=== PATIENT | female | born 1970 | race Caucasian/White ===

== ENCOUNTER 2019-06-29 10:17 | Inpatient (IN) ==
[2019-06-29] MEDS ORDERED: ZOFRAN IV ONE (10:29)
[2019-06-29] MEDS ORDERED: MORPHINE IV ONE ×2 (10:29→13:12)
[2019-06-29 10:45] LABS: BASO# 0.02 X1000 (0.0-0.2); BASO% 0.2 % (0.0-0.8); EOS# 0.38 X1000 (0.0-0.7); EOS% 3.6 % (0.0-10.0); HEMATOCRIT 37.8 % (37.0-47.0); HEMOGLOBIN 12.2 g/dL (12.0-16.0); IMM GRAN# 0.05 X1000 (0.0-0.04); IMM GRAN% 0.5 % (0.0-0.5); LYMPH# 3.27 X1000 (1.2-3.4); LYMPH% 31.1 % (20.5-51.1); MCH 30.3 PG (27-31); MCHC 32.3 g/dL (33-37); MCV 93.8 FL (81-99); MONO# 0.64 X1000 (0.11-0.59); MONO% 6.1 % (1.7-9.3); MPV 10.7 FL (7.4-10.4); NEUT# 6.14 X1000 (1.4-6.5); NEUT% 58.5 % (42.2-75.2); PLT 269 X1000 (130-400); RBC 4.03 XMIL (4.2-5.4); RDW 13.8 % (11.5-14.5)
[2019-06-29 11:03] LABS: AGAP 13; ALBUMIN 4.1 g/dL (3.5-5.0); ALKALINE PHOSPHATASE 79 U/L (32-104); BUN 13 mg/dL (8-22); CALCIUM 9.3 mg/dL (8.8-10.2); CHLORIDE 110 mmol/L (98-107); COSMO 289; CREATININE 1.2 mg/dL (0.5-0.9); ESTIMATED GFR 48; GLUCOSE 102 mg/dL (70-104); GOT 11 U/L (10-30); GPT 12 U/L (10-36); LIPASE 31 U/L (13-60); POTASSIUM 3.7 mmol/L (3.5-5.1); SODIUM 145 mmol/L (136-145); TCO2 22 mmol/L (25-35); TOTAL BILIRUBIN < 0.15 mg/dL (0.20-1.00); TOTAL PROTEIN 6.5 g/dL (6.3-8.3)
[2019-06-29 11:46] LABS: BILIRUBIN URINE NEGATIVE (NEGATIVE); BLOOD URINE NEGATIVE (NEGATIVE); CLARITY CLEAR (CLEAR); COLOR YELLOW; GLUCOSE URINE NEGATIVE (NEGATIVE); KETONE URINE TRACE mg/dL (NEGATIVE); LEUKOCYTES URINE TRACE (NEGATIVE); NITRITE URINE NEGATIVE (NEGATIVE); PH URINE 6.5; PROTEIN URINE NEGATIVE (NEGATIVE); SP GRAVITY URINE 1.015; UROBILINOGEN URINE NORMAL
[2019-06-29 11:51] LABS: URINE SOURCE CLEAN CATCH
[2019-06-29 11:53] LABS: URINE BACTERIA NEGATIVE /HFP; URINE CAST NONE SEEN /LPF; URINE CRYSTAL NONE SEEN /HPF; URINE EPITHELIAL CELLS >10 /HPF (<10); URINE RBC <10 /HPF (<10); URINE WBC <10 /HPF (<10); URINE YEAST NONE SEEN /HPF
--- NOTE | 2019-06-29 11:54 | EKG Report ---
Test Performed on : 06/29/2019 11:50:37 AM Test Reason : fainting. Blood Pressure : / mmHG Vent. Rate : 070 BPM Atrial Rate : 070 BPM P-R Int : 140 ms QRS Dur : 086 ms QT Int : 394 ms P-R-T Axes : 027 030 044 degrees QTc Int : 425 ms Normal sinus rhythm. with sinus arrhythmia. Normal ECG When compared with ECG of 26-JAN-2019 14:28, No significant change was found Unconfirmed Result
--- NOTE | 2019-06-29 12:17 | Diag Imaging Result Doc PS360 ---
EXAM: CT ABD/PELVIS W/IV CONT ONLY 06/29/2019 HISTORY: RUQ PAIN TECHNIQUE: This exam was performed using automated exposure control, adjustment of mA or kV according to patient size, and/or use of iterative reconstruction technique. COMMENT: There is no evidence of acute disease in the visualized portion of the chest. There is some prominence of the intrahepatic biliary ducts. The common bile duct measures less than 8 mm in diameter in the appearance has not changed significantly since 05/28/2019. There has been previous cholecystectomy. The adrenal glands and spleen are not enlarged. There is some stool throughout the colon. The pancreas is unremarkable. There is no evidence of bowel obstruction or abdominal aortic aneurysm. There is no significant adenopathy. The kidneys are without evidence of hydronephrosis or mass. Pelvis: The appendix is normal in appearance. There is no evidence of diverticulitis. There are no masses. There is a prominent external iliac node on the right which has not changed significantly in appearance since the previous study. There is no evidence of free fluid. There is a tampon in the vagina. The urinary bladder is not distended. There are postsurgical changes in the lumbar spine. No evidence of acute bony abnormality is present. IMPRESSION: Stable CT of the abdomen and pelvis. Electronically signed by David Roe 06/29/2019 12:15 PM
--- NOTE | 2019-06-29 14:09 | PROVIDER DOCUMENTATION ---
This chart was entered by [employer] Scribe, acting as scribe for Kathya Garnett DO. HPI-Abdominal Pain/GI Problem - General Chief Complaint: Abdominal Pain Stated Complaint: CHEST PAIN Time Seen by Provider: 06/29/19 10:27 Source: patient, family Unable to obtain history due to:: urgency Allergies/Adverse Reactions: Patient Allergies Allergy/AdvReac Type Severity Reaction Status Date / Time No Known Allergies Allergy Verified 06/29/19 11:38 Home Medications: Home Medication List Medication Instructions Recorded Confirmed Last Taken Type Clonazepam [Klonopin] 1 mg PO BID 06/29/19 06/29/19 06/29/19 History 1mg Gabapentin [Neurontin] 600 mg PO 4XDAY 06/29/19 06/29/19 06/29/19 History 600mg Temazepam 1 cap PO HS 06/29/19 06/29/19 06/28/19 21:00 History Topiramate 1 cap PO HS 06/29/19 06/29/19 06/26/19 21:00 History Vortioxetine Hydrobromide 5 mg PO QAM 06/29/19 06/29/19 06/29/19 History [Trintellix] 4mg - History of Present Illness-ABD Nature of Presenting Problems: 48 yowf presents to the ed via POV and appeared unresponsive and diaphoretic. dr garnett was at car side with pt as soon as pt pulled in. pt was placed on a stretcher and brought into the trauma room. pt once in the trauma room was responsive and speaking to dr garnett. pt sts she saw dr white yesterday and RLQ pain has been intermittent for 2 weeks but this morning became severe. pt has nausea and sts has not been able to eat solid food and has been drinking jello a nd broth "for a while" pt on exam is guarding RLQ and tearful during exam. pt sts she has no medication for sx and has been taking antacids at home for abdominal pain with no releif. Abdominal Pain Onset Location: reports: RLQ Pain Radiation: reports: no radiation Quality of Pain: reports: burning, sharp, stabbing Severity in ED: reports: severe Onset/Duration: reports: other (2 weeks but worseed this am) Timing: reports: still present, getting worse Activities at Onset: reports: light activity Exposure to sick contacts?: No Modifying Factors: improves with: nothing. worse with: movement, palpation Associated Symptoms: reports: diaphoresis, loss of appetite, nausea. denies: back/neck pain, chest pain, diarrhea, dizziness, fever/chills, headaches, vomiting Last BM: unsure Dark Stools Present?: reports: none noticed Rectal Bleeding: reports: none # of Diarrhea Episodes: 0 Rectal Pain: reports: none # of Vomiting Episodes: 0 Emesis Description: reports: none Bruising or Bleeding Gums?: No Similar Symptoms Previously?: Yes (for 2 weeks) Recently seen or treated by another doctor?: Yes (dr white yesterday) Review of Systems - Adult - REVIEW OF SYSTEMS - ADULT Constitutional: denies: chills, fever Eyes: reports: no symptoms reported Ears, Nose, Mouth & Throat: reports: no symptoms reported Cardiovascular: denies: chest pain, palpitations Respiratory: denies: cough, shortness of breath, wheezing Gastrointestinal: reports: see HPI, abdominal pain, frequent heartburn, nausea, poor appetite. denies: diarrhea, vomiting Genitourinary: reports: no symptoms reported Musculoskeletal: denies: back pain, neck pain Integumentary: reports: no symptoms reported Neurological: denies: dizziness/vertigo, headache/migraines Psychiatric: reports: no symptoms reported Endocrine: reports: no symptoms reported Hematologic/Lymphatic: reports: no symptoms reported Allergic/Immunologic: reports: no symptoms reported All Other Systems: Reviewed and Negative Past History - Adult - PAST MEDICAL HISTORY-ADULT Review of Records: reports: Old Records Reviewed, Nursing Assessment Review, Medications Reviewed, Social history reviewed & non-contributory. Major Childhood Illnesses: reports: denies history Cardiovascular: reports: HTN (not treated) Respiratory: reports: denies history Gastrointestinal: reports: GERD Obstetrical/Gynecological: reports: ovarian cysts Genitourinary: reports: denies history Musculoskeletal: reports: chronic pain Neurological: reports: denies history Psychiatric: reports: anxiety, depression, ptsd, suicide attempt Endocrine/Immune: reports: denies history Other Conditions: reports: other (herpes) - PRIOR SURGERIES/PROCEDURES Surgical/Procedure History: reports: back/neck (back only) - PRIOR HOSPITALIZATIONS Prior Hospitalizations: reports: for similar symptoms, psychiatric or rehab - IMMUNIZATION STATUS Childhood Immunizations: See Nurse Assessment Flu Vaccine: See Nurse Assessment - FAMILY HISTORY Family History: reviewed, not pertinent - SOCIAL HISTORY Smoking: quit greater than 1 year Substance Use: alcohol Alcohol Use Frequency: occasionally Living Situation: family Physical Exam-General - PHYSICAL EXAM-ADULT Initial Vital Signs Reviewed: Yes (BP-166/134) - CONSTITUTIONAL General Appearance: alert, severe distress, obese - EYES Eyes: PERRL/EOMI, pink conjunctivae - HEAD, EARS, NOSE, MOUTH & THROAT HENMT: normocephalic/atraumatic, moist mucous membranes, normal ENT inspection - NECK Neck: non-tender, full range of motion, supple, normal inspection - RESPIRATORY Respiratory: chest non-tender, lungs clear, normal breath sounds - CARDIOVASCULAR Cardiovascular: normal peripheral pulses, regular rate, rhythm - CHEST (BREASTS) Chest/Breast: deferred - GASTROINTESTINAL (ABDOMEN) Abdominal Exam: soft, no pulsatile mass, guarding (RUQ), tenderness, other (well healed scar from gall bladder sx). negative: distended, rigid, rebound - LYMPHATIC Lymphatic: no adenopathy - MUSCULOSKELETAL Back Exam: normal inspection, no CVA tenderness, no vertebral tenderness Extremity: normal range of motion, normal inspection, no calf tenderness, normal capillary refill - SKIN Integumentary: normal color, normal turgor, diaphoresis - NEUROLOGIC Neurologic: other (INITIALLY VERY SOMNOLENT, THEN ALERT AND ANSWERING QUESTIONS APPROPRIATELY S DEFICITS.). negative: facial droop - PSYCHIATRIC Psych/Mental Status: normal thought content, normal thought process, oriented x 3, tearful Progress - PLAN OF CARE/RESULTS Progress/Plan/Lab Results: Vital Signs - 8 hr 06/29/19 10:20 06/29/19 10:39 Temperature 98.5 F Pulse Rate 82 Respiratory Rate 18 Blood Pressure 166/134 O2 Sat by Pulse Oximetry 97 Orders Category Date Time Status BLOOD CULTURE [BLDCUL] Stat Lab 06/29/19 10:29 Uncollected CBC WITH ELECTRONIC DIFF [HEME] Stat Lab 06/29/19 10:28 Received COMPREHENSIVE METABOLIC PANEL [CHEM] Stat Lab 06/29/19 10:28 Received LACTATE, PLASMA [CHEM] Stat Lab 06/29/19 10:29 Uncollected LIPASE [CHEM] Stat Lab 06/29/19 10:28 Received UA NIMS W/REFLEX CULT PL [URINALYSIS] Stat Lab 06/29/19 10:29 Uncollected Morphine Med 06/29/19 10:29 Discontinued 4 mg IV NOW ONE Ondansetron [Zofran] Med 06/29/19 10:29 Discontinued 4 mg IV NOW ONE EKG [EKG] Stat Ther 06/29/19 10:29 Ordered The pt was arousable to sternal rub when in the car in the ambulance bay. She was able to bear weight to the stretcher. Her S.O. insisted she was not breathing just prior to arrival and that he had to do CPR on the roadside, which he states she responded to. CT shows no acute pathology. I discussed her care with Dr White, who states he plans colonoscopy in the near future. Given her decreased LOC on arrival here and her reported stopping breathing, she was admitted to the hospitalist service, Dr Knutson. Result Diagrams: 06/29/19 10:28 06/29/19 10:28 - REASSESSMENT Reassessment #1 Time Reassessed: 11:38 (pt is laughing and joking with family at bedside and is no distress. pt is lying on her side in the bed ) Status: improving Reassessment Comment: at bedside Reassessment #2 Time Reassessed: 13:11 (pt sts pain is bad again and is tearful with dr garnett at bedside. finace at bedside sts he had to pull the car over 3 blocks from the hospital and do CPR on the pt because she stopped breathing. he sts 'I got her back pretty quick and then drove her here" ) Status: worsening Reassessment Comment: at bedside - EKG 1 Time of EKG reading by physician:: 11:50 EKG Read and Signed by:: Kathya Garnett EKG Interpretation (*Must complete 3 of following elements*): Normal Rate: 70 Rhythm: nsr with sinus arrythmia [place]: normal QRS: normal MT Interval: normal ST Wave: normal Prior EKG Comparison: no prior EKG - CT/MRI 1 CT Study: Abdomen, Pelvis Impression: See EMR Report (EXAM: CT ABD/PELVIS W/IV CONT ONLY 06/29/2019 HISTORY: RUQ PAIN TECHNIQUE: This exam was performed using automated exposure control, adjustment of mA or kV according to patient size, and/or use of iterative reconstruction technique. COMMENT: There is no evidence of acute disease in the visualized portion of the chest. There is some prominence of the intrahepatic biliary ducts. The common bile duct measures less than 8 mm in diameter in the appearance has not changed significantly since 05/28/2019. There has been previous cholecystectomy. The adrenal glands and spleen are not enlarged. There is some stool throughout the colon. The pancreas is un remarkable. There is no evidence of bowel obstruction or abdominal aortic aneurysm. There is no significant adenopathy. The kidneys are without evidence of hydronephrosis or mass. Pelvis: The appendix is normal in appearance. There is no evidence of diverticulitis. There are no masses. There is a prominent external iliac node on the right which has not changed significantly in appearance since the previous study. There is no evidence of free fluid. There is a tampon in the vagina. The urinary bladder is not distended. There are postsurgical changes in the lumbar spine. No evidence of acute bony abnormality is present. IMPRESSION: Stable CT of the abdomen and pelvis. Electronically signed by David Roe 06/29/2019 12:15 PM 06/29/19 1215 Interpreting Physician: David Roe MD Dictated Date/Time: 06/29/19 1211 cc: Kathya Garnett DO; None,PCP) - CONSULTS/PCP/HOSPITALIST Notification #1 *Consult/PCP/Hospitalist*: dr adali gomes Time Discussed: 13:16 Reason/Comments: phone consult Departure - Departure Date of Disposition Decision: 06/29/19 Time of Disposition Decision: 14:08 DIAGNOSIS: Syncope and collapse Abdominal pain Qualifiers: Abdominal location: right upper quadrant Qualified Code(s): R10.11 - Right upper quadrant pain Disposition: ADMITTED INPATIENT 09 Certified Medical Emergency: Emergent Condition: Fair - Critical Care Note This patient required my direct & personal management of CC.: Yes Total Time (mins): 38 Critical Care Statement: This patient required my direct personal management to treat or rule out processes, the absence of which, could potentiallly result in sudden, clinically significant life or limb threatening deterioration. Attestation - Physician/ LUIS Attestation Patient care was provided by Advanced Practice Provider:: No The physician spent face to face time with patient:: Yes Advanced Practice Provider documentation review:: Supervising physician onsite and consulted in the evaluation and care of this patient. The physician did have a face to face encounter with the patient. This chart was documented by the indicated scribe, ([employer] Scribe) and accurately reflects the services I performed and decisions made by me, Kathya Garnett DO, as attested by the provider's signature.
[2019-06-29] MEDS ORDERED: APRESOLINE IV PRN (18:29)
[2019-06-29] MEDS ORDERED: NS 1,000 ML IV SCH (18:30)
[2019-06-29] MEDS ORDERED: G.I. COCKTAIL PO ONE (19:04)
[2019-06-29] MEDS: NORCO-7.5 PO PRN (19:57)
[2019-06-29] MEDS: TOPAMAX PO SCH ×2 (19:57→20:53)
[2019-06-29] MEDS: NEURONTIN PO SCH ×2 (19:57→20:53)
--- NOTE | 2019-06-29 23:06 | HISTORY AND PHYSICAL ---
CHIEF COMPLAINT: Abdominal pain. HISTORY OF PRESENT ILLNESS: The patient is a 48-year-old female who has quite a complicated present illness. She notes that she has been nauseated and vomiting. Has had abdominal pain intensely for the past 2 to 3 months. Her notes that she has not kept anything down for the past couple of months. She apparently had her gallbladder removed by Dr. White at some point and was told that she needed to have her duodenum resected. However, she notes that she had not followed up with him or anyone else during this time. They also note that she has had a fever of 103 for the past 2 to 3 weeks, but has not followed up with anyone for this. Denied any hematemesis, melena or hematochezia. As noted, do state that she has not been keeping anything down for several months and that all of her symptoms have worsened for the past 2 or 3 weeks culminating in the severity today that brought her to the hospital. notes that en route to the hospital, he was driving the car and had to extract puller and perform CPR on her because she had stopped breathing. Thankfully, upon arrival to the ER, she was awake, alert, oriented, and appeared to be in no respiratory distress. MEDICATIONS: Klonopin 1 mg b.i.d., Neurontin 600 mg 4 times a day, Trintellix 5 mg daily, Restoril at bedtime. ALLERGIES: No known drug allergies. PAST MEDICAL HISTORY: Insomnia, neuropathy, chronic anxiety. She has had a cholecystectomy in the past, history of hypertension although states she does not take any medications for her blood pressure currently. Has chronic anxiety and depression, history of PTSD, previous suicide attempt. Has chronic pain and apparent history of ovarian cysts. FAMILY HISTORY: Noncontributory. SOCIAL HISTORY: She is . Does drink alcohol occasionally. Denies illicit substance use. She does smoke. She is . PHYSICAL EXAMINATION: VITAL SIGNS: Reviewed. She is afebrile. Temperature 98.5 degrees, pulse 82, respiratory rate 18, BP initially elevated 166/134 in the ER. Saturations 97% on room air. GENERAL: Patient is awake, alert. She is in no respiratory distress. She is lying in the position. She is tearful on exam, frequently crying. Speech is nonpressured, nonlabored. Memory appears intact. HEENT: Normocephalic. NECK: Supple. CARDIOVASCULAR: Regular rate. No apparent murmurs. CHEST: Clear and nonlabored. ABDOMEN: Soft, diffusely tender making exam difficult. She has voluntary guarding before palpation. Appears to not have any involuntary guarding. Appears to have no rebound. Positive bowel sounds. EXTREMITIES: Moves all extremities. NEUROLOGIC: No focal changes. ASSESSMENT: 1. Nausea, vomiting. 2. Decreased oral intake. 3. Abdominal pain. 4. Fever per history. 5. Depression. 6. Anxiety. PLAN: Overall, patient appears to be in no distress. She appears to be awake, alert, and oriented. Thankfully, although her history is she is not kept anything down for 3 months and has had a fever for 3 weeks, her white count at 10, her creatinine at 1.2, BUN is normal, CO2 is normal as well as her electrolytes would seem to contradict this. We are going to admit her to the hospital, place her on IV fluids. Discussed with patient that given her somewhat unusual syncopal episode en route to the hospital causing her to perform CPR, certainly would not be in her best interest to take Klonopin, Restoril and pain medication. We will place her on telemetry and we will follow. We will transfer her to [facility]'s input as well as GI. Certainly feel as though she will need to have endoscopies to rule out any pathology. CT of the abdomen was essentially negative. cc: Juan Carlos Knutson MD
[2019-06-30] MEDS: NORCO-7.5 PO PRN (03:43)
[2019-06-30] MEDS: NORCO-10 PO PRN ×2 (08:48→14:05)
[2019-06-30] MEDS: KLONOPIN PO PRN (08:50)
[2019-06-30] MEDS: NEURONTIN PO SCH ×4 (08:50→20:50)
[2019-06-30] MEDS: TRINTELLIX PO SCH (08:50)
[2019-06-30] MEDS ORDERED: M.V.I.-12 10 ML, FOLIC ACID 1 MG, MAGNESIUM SULFATE 1 GM, THIAMINE 100 MG in NS 1,000 ML IV ONE (10:00)
--- NOTE | 2019-06-30 11:22 | PROGRESS NOTE ---
DATE: 06/30/2019 SUBJECTIVE: Upon entering the room, she is lying on her right side using her cellphone, either text or playing a game. Regardless, she appears in no respiratory distress. She appears to be breathing comfortably and easily and is lying quite still in the bed. Unfortunately, this did not last. After I spoke to her she is now moving about in the bed, weeping loudly, stating how much she is hurting, asking for IV pain medications. PHYSICAL EXAM: Vital Signs: Temperature 98, pulse 67, respiratory rate 18, BP 134/92. General: Patient is awake. She is in no respiratory distress. HEENT: Normocephalic. Neck: Supple. Cardiovascular: Regular rate. Chest: Clear, nonlabored. Abdomen: Soft. Unfortunately, unable to truly assess due to the tenderness prior to my palpating her abdomen. Extremities: Moves all extremities. Neurologic: She has no focal changes. ASSESSMENT: 1. Abdominal pain of undetermined origin with normal labs, normal CT. 2. History of febrile illness for the past 3 weeks, although thankfully she has had no fever during the previous 24 hours since she has been in the hospital. 3. Pain control. This does seem to be somewhat problematic. Patient appears to be more interested in intravenous pain medication than true pain control. She appears to be in minimal, if any pain, prior to noting that I was in the room. The staff seems to have had the same inclination. We are going to continue to follow. We did increase her pain pill from 7.5 to 10, increased from 6 hours to 4. Discussed with her that intravenous pain medication would not be in her best interest as this is a chronic problem and not an acutely fixable issue. Dr. White is on board. cc: Juan Carlos Knutson MD
--- NOTE | 2019-06-30 12:39 | GENERAL SURGERY CONSULTATION ---
DATE: 06/30/2019 REQUESTING PHYSICIAN: Dr. Knutson. REASON FOR CONSULTATION: Abdominal pain. HISTORY OF PRESENT ILLNESS: A 48-year-old female, well known to me, who I had seen in the office this week for abdominal pain. She had previously had a CT scan last month that showed enteritis in the duodenum. She was seen in the office. We talked about repeating the CT scan and potentially scheduling an EGD or colonoscopy. By report, she has had issues holding any food down and she apparently told the hospitalist that I was planning on removing her duodenum. Regardless, she apparently had worsening pain and had what they described as a passing out issue, and by report per the fiancee, she apparently needed to have CPR in the car. This did not seem to be as evident when she arrived to the emergency department where at all she needed was a sternal rub, but she had this report of passing out. Therefore, she has been admitted. She is still complaining of abdominal pain in the epigastric area. I was asked to weigh an opinion. She had a repeat CT scan that did not show any other pathology. PAST MEDICAL HISTORY: 1. Insomnia. 2. Neuropathy. 3. Chronic anxiety. 4. Hypertension. 5. Depression. 6. History of PTSD. 7. History of suicide attempt. PAST SURGICAL HISTORY: Includes cholecystectomy MEDICATIONS: Reviewed. FAMILY HISTORY: Reviewed with patient, noncontributory. SOCIAL HISTORY: Drinks alcohol occasionally. Denies illicit substance. She is a smoker. REVIEW OF SYSTEMS: A full 10 point review of systems obtained, negative as specified in HPI. PHYSICAL EXAMINATION: Vital Signs: Patient is currently afebrile. Her vital signs are stable. General: No acute distress. Alert, interactive female, looks stated age. HEENT: Normocephalic, atraumatic. Pupils equal, round, reactive to light. Mucous membranes moist. Oropharynx benign. Neck: Supple. Trachea midline. Cardiovascular: Regular rate and rhythm. Lungs: Grossly clear. Abdomen: Soft. She reports diffuse tenderness to palpation. I do not see any peritoneal signs. I do not see any guarding. Extremities: Moves all extremities. Neurologic: Grossly intact. Skin: No signs of jaundice. Vascular: All extremities perfused. LABORATORY DATA: Reviewed and almost all essentially normal. CT scan reviewed and essentially normal. ASSESSMENT AND PLAN: A 48-year-old female with abdominal pain and possible syncopal episode. 1. Syncopal episode. At this time, defer to the hospitalist. We will continue to monitor if she has not had any more episodes. She says it was because of pain. 2. Abdominal pain. At this time, the patient's laboratories do not suggest any intra-abdominal process needing a CT scan. She has not been hemodynamically unstable. She has not been tachycardic. Unsure the exact etiology of her pain. We will add Protonix p.o. for any kind of gastric issue. I have her scheduled for an EGD and colonoscopy. May try to bump this up to Wednesday or Wednesday if possible. I think she can probably hold on her transfer for [facility]. I did discuss this case with Dr. Knutson who is the admitting hospitalist, I appreciate the consult. cc: MD Juan Carlos Fulton MD
[2019-06-30] MEDS: MORPHINE IV PRN ×2 (16:19→22:12)
[2019-06-30] MEDS: TOPAMAX PO SCH (20:50)
[2019-07-01] MEDS: MORPHINE IV PRN ×4 (04:06→22:26)
[2019-07-01] MEDS: PROTONIX PO SCH (06:23)
[2019-07-01] MEDS: TRINTELLIX PO SCH (10:09)
[2019-07-01] MEDS: NEURONTIN PO SCH ×4 (10:10→20:38)
[2019-07-01] MEDS: KLONOPIN PO PRN ×2 (10:10→20:38)
[2019-07-01 11:14] LABS: HEMATOCRIT 41.2 % (37.0-47.0); HEMOGLOBIN 13.4 g/dL (12.0-16.0); MCH 30.5 PG (27-31); MCHC 32.5 g/dL (33-37); MCV 93.8 FL (81-99); MPV 9.8 FL (7.4-10.4); RBC 4.39 XMIL (4.2-5.4); WBC 6.12 X1000 (4.8-10.8)
[2019-07-01 11:29] LABS: AGAP 11; ALBUMIN 3.9 g/dL (3.5-5.0); ALKALINE PHOSPHATASE 202 U/L (32-104); BUN 6 mg/dL (8-22); CALCIUM 8.8 mg/dL (8.8-10.2); CHLORIDE 110 mmol/L (98-107); COSMO 281; CREATININE 0.8 mg/dL (0.5-0.9); ESTIMATED GFR > 60; GLUCOSE 130 mg/dL (70-104); GOT 348 U/L (10-30); GPT 516 U/L (10-36); MAGNESIUM 2.2 mg/dL (1.5-2.7); POTASSIUM 3.9 mmol/L (3.5-5.1); SODIUM 141 mmol/L (136-145); TCO2 20 mmol/L (25-35); TOTAL PROTEIN 6.7 g/dL (6.3-8.3)
--- NOTE | 2019-07-01 13:41 | PROGRESS NOTE ---
DATE: 07/01/2019 SUBJECTIVE: Upon entering the room patient is sitting up on her phone in no respiratory distress. She immediately starts crying loudly and weeping. After attempting to discuss with her the impact stress has on abdominal issues she states she is not stressed. She just does not know what is going on inside of her and feels like that she is dying from it. She then remarks something about some patient apparently I have seen in the past who may have told me some misleading social decisions she has made in the past. States that she is over it and that she has given all her furniture to God and her ex- sold her furniture to his new girlfriend. I discussed with her that I have do apologize profusely but I am completely oblivious to whatever she is talking about. She continued to cry stating that she was over it. PHYSICAL EXAMINATION: Temperature 97.6, pulse 69, respiratory rate 18, BP 132/78.General: Patient is in no respiratory distress. Does not appear to be any physical distress. Certainly appears to be in emotional distress. HEENT: Normocephalic. Neck: Supple. Cardiovascular: Regular rate. No murmurs. Chest: Clear, nonlabored. No wheezing. Abdomen: Soft. Unable to appreciate tenderness as she begins wailing prior to palpating her abdomen. Extremities: Moves all extremities. Neuro: No changes. ASSESSMENT: 1. Nausea, vomiting. 2. Abdominal pain. 3. Tearful on exam. 4. Depression, anxiety. 5. Fever by history. Oddly enough patient has not had any documented fever in the past 48 hours. However, when discussing this with her she notes that she had a high fever last night, broke out into chills and sweating soaked her bed but was too scared to tell the staff. I tried to discuss with patient how important it would be for her to tell the staff if she is having that severe of a fever. 6. I am going to continue her in the hospital. She has a planned EGD and colon on Wednesday. cc: Juan Carlos Knutson MD
--- NOTE | 2019-07-01 17:57 | Diag Imaging Result Doc PS360 ---
US ABDOMEN-COMPLETE - 07/01/2019 INDICATION: elevated lfts COMPARISON: 06/29/2019 FINDINGS: The gallbladder is absent. Common bile duct measures 2 mm. The liver, pancreas, and spleen are normal. Both kidneys are obscured by extensive bowel gas. The spleen measures 10.1 x 4.4 cm. Aorta, IVC, and main portal vein are patent. IMPRESSION: Negative exam. Electronically signed by Alessandro Ventura 07/01/2019 5:54 PM
[2019-07-01] MEDS: NORCO-10 PO PRN (20:38)
[2019-07-01] MEDS: TOPAMAX PO SCH (20:38)
[2019-07-01] MEDS: NS 1,000 ML IV SCH (22:20)
[2019-07-02] MEDS: MORPHINE IV PRN ×3 (06:24→21:24)
[2019-07-02] MEDS: PROTONIX PO SCH (06:25)
[2019-07-02] MEDS ORDERED: GOLYTELY PO ONE (06:30)
[2019-07-02 06:38] LABS: AGAP 13; ALBUMIN 4.1 g/dL (3.5-5.0); ALKALINE PHOSPHATASE 229 U/L (32-104); BUN 7 mg/dL (8-22); CALCIUM 8.8 mg/dL (8.8-10.2); CHLORIDE 107 mmol/L (98-107); COSMO 281; CREATININE 0.7 mg/dL (0.5-0.9); ESTIMATED GFR > 60; GLUCOSE 88 mg/dL (70-104); GOT 260 U/L (10-30); GPT 503 U/L (10-36); POTASSIUM 4.6 mmol/L (3.5-5.1); SODIUM 142 mmol/L (136-145); TCO2 22 mmol/L (25-35); TOTAL PROTEIN 6.7 g/dL (6.3-8.3)
--- NOTE | 2019-07-02 09:32 | PROGRESS NOTE ---
DATE: 07/02/2019 SUBJECTIVE: The patient complains of having epigastric and right upper quadrant abdominal discomfort. She denies having any other complaints. OBJECTIVE: Vital Signs: Temperature 98.7 degrees, pulse 63 per minute, respiratory rate 18 per minute, blood pressure 124/89, pulse oximetry 100% on room air. General: Patient is alert and oriented x3. She does not appear to be in any acute distress. Cardiovascular System: First and second heart sounds are audible without any murmurs or gallops. Respiratory System: No respiratory distress noted. Bilateral lung air entry is good without any rales or rhonchi. Gastrointestinal: Abdomen is soft and nondistended. It is slightly tender on deep palpation in the epigastric area. No viscera are palpable and normal bowel sounds are present. Musculoskeletal System: No deformities are present. DIAGNOSTIC DATA: CBC is nondiagnostic and comprehensive metabolic panel showed AST level of 260, ALT 503, and alkaline phosphatase of 229. Rest of the comprehensive metabolic panel is nondiagnostic. Abdominal ultrasound done yesterday was mostly negative and CT scan of the abdomen and pelvis obtained on 06/29/[address] scan of the abdomen and pelvis without any acute findings. She also had a surgical consultation done, who did not think she had an acute abdomen. IMPRESSION: Epigastric abdominal pain with transaminitis and anxiety disorder, along with depression. PLAN: 1. The patient will be continued on IV fluids along with supportive care and proton pump inhibitors. 2. We are going to transfer her to [facility] for possible esophagogastroduodenoscopy and colonoscopy tomorrow. 3. Further recommendations will be given as per outcome of those tests. cc: MD Juan Carlos Vyas MD
[2019-07-02] MEDS ORDERED: FLU VACCINE IM ONE (10:19)
[2019-07-02] MEDS: TRINTELLIX PO SCH (12:24)
[2019-07-02] MEDS: NEURONTIN PO SCH ×4 (12:25→21:17)
[2019-07-02] MEDS: KLONOPIN PO PRN (12:25)
[2019-07-02] MEDS: NS 1,000 ML IV SCH (17:44)
[2019-07-02] MEDS: OXY IR PO PRN ×2 (17:51→23:40)
[2019-07-02] MEDS: TOPAMAX PO SCH (21:17)
[2019-07-03] MEDS: MORPHINE IV PRN ×3 (04:06→20:08)
--- NOTE | 2019-07-03 05:42 | GENERAL SURGERY PROGRESS NOTE ---
DATE: 07/03/2019 SUBJECTIVE: Patient had some issues taking her bowel prep. Apparently, she ate a salad last night. I think she has mostly finished her bowel prep. She has had bowel movements. OBJECTIVE: Vital Signs: Patient is currently afebrile. Her vital signs are stable. General: No acute distress. HEENT: Normocephalic, atraumatic. Pupils equal, round, and reactive to light. Mucous membranes moist. Oropharynx benign. Neck: Supple. Trachea midline. Cardiovascular: Regular rate and rhythm. Lungs: Grossly clear. Abdomen: Soft. Some minimal discomfort. No peritoneal signs. Extremities: She moves all extremities. Neurologic: Grossly intact. Skin: No signs of jaundice. Vascular: All extremities perfused. LABORATORY: Reviewed events from the weekend. ASSESSMENT AND PLAN: A 48-year-old female with abdominal pain. Abdominal pain. At this time, we will plan on EGD and colonoscopy today. The risks, benefits, and alternatives were discussed. Risks including, but not limited to bleeding, infection, risk of anesthesia, risk of injury and perforation, and bleeding discussed. She wants to proceed. Hopefully, she has been cleaned out enough. cc: MD Juan Carlos Fulton MD
[2019-07-03 06:30] LABS: BASO# 0.02 X1000 (0.0-0.2); BASO% 0.3 % (0.0-0.8); EOS# 0.25 X1000 (0.0-0.7); EOS% 3.7 % (0.0-10.0); HEMATOCRIT 38.4 % (37.0-47.0); HEMOGLOBIN 12.3 g/dL (12.0-16.0); IMM GRAN# 0.01 X1000 (0.0-0.04); IMM GRAN% 0.1 % (0.0-0.5); LYMPH# 2.37 X1000 (1.2-3.4); LYMPH% 34.9 % (20.5-51.1); MCV 93.7 FL (81-99); MONO# 0.41 X1000 (0.11-0.59); MPV 10.4 FL (7.4-10.4); NEUT# 3.74 X1000 (1.4-6.5); PLT 269 X1000 (130-400)
[2019-07-03 07:17] LABS: AGAP 12; ALBUMIN 3.6 g/dL (3.5-5.0); ALKALINE PHOSPHATASE 189 U/L (32-104); AMYLASE 26 U/L (20-200); BUN 8 mg/dL (8-22); CALCIUM 8.7 mg/dL (8.8-10.2); CHLORIDE 110 mmol/L (98-107); COSMO 281; CREATININE 0.9 mg/dL (0.5-0.9); ESTIMATED GFR > 60; GLUCOSE 89 mg/dL (70-104); GOT 104 U/L (10-30); GPT 311 U/L (10-36); LIPASE 13 U/L (13-60); POTASSIUM 3.9 mmol/L (3.5-5.1); SODIUM 142 mmol/L (136-145); TCO2 20 mmol/L (25-35); TOTAL PROTEIN 6.2 g/dL (6.3-8.3)
[2019-07-03] MEDS ORDERED: DIPRIVAN 1% ONE ×2 (10:21→11:04)
[2019-07-03] MEDS ORDERED: XYLOCAINE-MPF 2% ONE (10:23)
[2019-07-03] MEDS ORDERED: FENTANYL ONE (10:24)
[2019-07-03] MEDS ORDERED: LR 1,000 ML ONE (10:25)
[2019-07-03] MEDS: PROTONIX PO SCH (11:04)
[2019-07-03] MEDS: NEURONTIN PO SCH ×4 (11:05→21:14)
[2019-07-03] MEDS: TRINTELLIX PO SCH (11:05)
--- NOTE | 2019-07-03 14:58 | Diag Imaging Result Doc PS360 ---
EXAM: MRI MRCP (ABD W/O CONTRAST) HISTORY: possible cbd obstruction TECHNIQUE: MRCP. MIP images obtained. COMPARISON: None. FINDINGS: No dilatation to the common bile duct. No stone or stricture. The distal duct near the ampulla of Vater is obscured by bowel loops on the MRCP images. The distal common bile duct is poorly seen in the pancreatic head on the axial images. The spleen is not enlarged. No focal hepatic abnormality. Normal adrenal glands and kidneys. No aortic aneurysm. No bowel obstruction. The gallbladder has been removed. IMPRESSION: Although the distalmost portion of the common bile duct is poorly seen, the remainder of the common bile duct is not dilated. Electronically signed by Zurdo Collins 07/03/2019 2:56 PM
[2019-07-03] MEDS: OXY IR PO PRN ×2 (17:02→21:21)
--- NOTE | 2019-07-03 18:34 | OPERATIVE NOTE ---
PROCEDURE DATE: 07/03/2019 PREOPERATIVE DIAGNOSES: 1. Abdominal pain. 2. Change in bowel habits. POSTOP DIAGNOSIS: 1. Abdominal pain. 2. Change in bowel habits. 3. Mild gastritis. PROCEDURE: 1. EGD. 2. Colonoscopy to ascending colon. SURGEON: Bakari White MD. ACTIVITY SPECIALIST: None. ANESTHESIA: IV MAC. INTRAOPERATIVE FINDINGS: Gastritis and very poor prep in the colon. COMPLICATIONS: None at time dictation. ESTIMATED BLOOD LOSS: Minimal. SPECIMENS REMOVED: None. BRIEF HISTORY: A 48-year-old female with abdominal pain. Workup thus far been negative. We elected do EGD and colonoscopy. The risks, benefits, alternatives were discussed. Risks include but not limited to bleeding, infection, risk of perforation discussed, all questions answered. DESCRIPTION OF PROCEDURE: After informed consent was obtained patient brought to the GI suite placed on GI table. IV MAC anesthesia was then performed without complication. A formal time-out was then performed confirming patient, date, procedure, all in agreement. At that time the oral bite block was inserted. At that point we inserted the EGD scope through the oral bite block into the oropharynx and esophagus into the stomach. We got into the duodenum and viewed even to the 2nd and 3rd portion the duodenum. I saw the sphincter in the papilla and I did not see any obvious pathology. We slowly withdrew the scope. There was some mild gastritis but not enough to warrant a biopsy. The remainder of the stomach was normal. The esophagus was normal. Brought the scope out. We then repositioned the patient for a colonoscopy, did a digital rectal exam, no masses. We inserted colonoscope. The prep was very poor. Had a difficult time seeing all surfaces only place I can get to was the ascending colon and at that point there was significant amount of solid stool burden and I could not get past. We withdrew the scope slowly viewing all surfaces but again the bowel prep was poor and I could not see fully. Withdrew the scope. The patient tolerated procedure well, will transfer back to [place]. She will likely need an MRI and MRCP to evaluate for possible issues with the common bile duct since her LFTs increased suddenly. cc: MD Juan Carlos Fulton MD
[2019-07-03] MEDS: TOPAMAX PO SCH (21:14)
--- NOTE | 2019-07-03 21:36 | PROGRESS NOTE ---
DATE: 07/03/2019 SUBJECTIVE: Patient notes that her abdomen still hurts. Denies any fevers or chills. Still states that she is having pain on the right lower quadrant that radiates up to her right upper quadrant and across to her left side. Still states that she cannot eat but she was able to eat a salad last night while she was in the midst of her bowel prep for colonoscopy today. PHYSICAL: Temperature 98.7, pulse 67, respiratory 20, blood pressure stable.General: Patient is in no current respiratory distress. HEENT: Normocephalic. Neck: Supple. CV: Regular rate. Chest: Clear, nonlabored. Abdomen: Soft, nondistended. Extremities: Moves all extremities. ASSESSMENT: 1. Abdominal pain. 2. Transaminitis of undetermined origin. Her AST, ALT both elevated on Wednesday have been previously normal on Wednesday. So both are trending back to normal today. 3. Chronic stress reaction. The patient states that she is not stressed but each time I have had this discussion with her she is crying during the discussion as to how she is not stressed. PLAN: Patient went to [facility] today to have a colonoscopy that was normal per Dr. White. We are going to watch her overnight. Recheck her enzymes in the a.m. Hopefully they will improve and she can be discharged home. cc: Juan Carlos Knutson MD
[2019-07-04] MEDS: KLONOPIN PO PRN ×2 (00:24→09:17)
[2019-07-04] MEDS: MORPHINE IV PRN ×4 (03:08→23:08)
[2019-07-04] MEDS: OXY IR PO PRN ×2 (05:27→11:28)
[2019-07-04] MEDS: PROTONIX PO SCH (06:18)
[2019-07-04] MEDS: TRINTELLIX PO SCH (09:17)
[2019-07-04] MEDS: NEURONTIN PO SCH ×4 (09:18→22:56)
[2019-07-04 09:54] LABS: HEMATOCRIT 34.9 % (37.0-47.0); HEMOGLOBIN 10.9 g/dL (12.0-16.0); MCH 29.4 PG (27-31); MCHC 31.2 g/dL (33-37); MCV 94.1 FL (81-99); MPV 10.4 FL (7.4-10.4); RBC 3.71 XMIL (4.2-5.4); WBC 6.19 X1000 (4.8-10.8)
--- NOTE | 2019-07-04 10:17 | GENERAL SURGERY PROGRESS NOTE ---
DATE: 07/04/2019 SUBJECTIVE: Patient is still complaining of pain she reports in her left upper quadrant, right upper quadrant and right lower quadrant. States it is a 10/10. We did an EGD and colonoscopy yesterday, and besides some mild gastritis everything looked okay. Her bowel prep was pretty poor so I could not see the whole entirety of her colon, but the parts that I could see were normal. I did get an MRI and MRCP yesterday because of her elevated liver function test. It was also essentially normal with no issues in the liver noted either. Patient is requesting potentially to go to [facility]. OBJECTIVE: Vital Signs: Patient is currently afebrile. Her vital signs are stable. General: No acute distress. Sleeping in the chair. HEENT: Normocephalic, atraumatic. Pupils equal, round, reactive to light. Mucous membranes moist. Oropharynx benign. Neck: Supple. Trachea midline. Cardiovascular: Regular rate and rhythm. Lungs: Grossly clear. Abdomen: Soft. Tenderness is noted above but only mild. Extremities: Moves all extremities. Neurologic: Grossly intact. Skin: No signs of jaundice. Vascular: All extremities perfused. LABORATORY: Reviewed from yesterday. White blood cell count is normal. There is no left shift. Hematocrit is normal. AST and ALT and alkaline phosphatase are all trending down. The bilirubin is not abnormal. ASSESSMENT AND PLAN: A 48-year-old female with abdominal pain. Abdominal pain. At this time, she has had extensive imaging including a CT scan, ultrasound, MRI, EGD and colonoscopy all of which have not demonstrated any obvious issue. We did the MRCP to potentially see if there is any kind of filling defect. The only other potential issue could be sphincter of Oddi dysfunction, and she may need to see a GI doctor for that, but her ampulla of Vater looked relatively normal. I did have GI come in during the EGD to look at it also so I am not even sure that that is a cause per se. I would suspect that her bilirubin also would be elevated if she had sphincter of Oddi dysfunction. At this point, really do not have anything surgically to offer the patient, but will follow while she is in the hospital. cc: MD Juan Carlos Fulton MD
[2019-07-04 11:02] LABS: AGAP 10; ALBUMIN 3.6 g/dL (3.5-5.0); ALKALINE PHOSPHATASE 147 U/L (32-104); BUN 7 mg/dL (8-22); CALCIUM 8.7 mg/dL (8.8-10.2); CHLORIDE 111 mmol/L (98-107); COSMO 279; CREATININE 0.8 mg/dL (0.5-0.9); ESTIMATED GFR > 60; GLUCOSE 90 mg/dL (70-104); GOT 41 U/L (10-30); GPT 189 U/L (10-36); POTASSIUM 3.6 mmol/L (3.5-5.1); SODIUM 141 mmol/L (136-145); TCO2 20 mmol/L (25-35); TOTAL PROTEIN 5.8 g/dL (6.3-8.3)
[2019-07-04 11:56] LABS: HEPATITIS PROFILE ACUTE SEE COMMENTS
[2019-07-04] MEDS: MIRALAX PO SCH (14:05)
--- NOTE | 2019-07-04 14:07 | PROGRESS NOTE ---
DATE: 07/04/2019 SUBJECTIVE: The patient has no major complaints. OBJECTIVE: Vital Signs: Blood pressure is 123/71, heart rate of 71, respiratory rate of 16, temperature 98.4 degrees, 96% on room air. Cardiovascular: Regular rate and rhythm. Pulmonary: Bilateral breath sounds. Clear to auscultation. GI: She has pain in her right upper quadrant. No guarding though. IMAGING AND LABORATORY DATA: White count 6, hemoglobin and hematocrit 10 and 34, platelets 251. AST and ALT are down to 41 and 189 from 348 and 516, which is an improvement. Her Tylenol level was normal. Her hepatitis panel is negative. All of her imaging is really unremarkable. The distal duct near the ampulla of Vater MRCP really cannot be seen, but there was not. Everything else looked okay. PROBLEM LIST: 1. Abdominal pain, really of undetermined origin. She has elevated liver enzymes consistent with an acute hepatitis or hepatic injury. I am not really sure if this could necessarily explain her pain. I am not sure if we need to consider endoscopic retrograde cholangiopancreatography, even though her magnetic resonance cholangiopancreatography is negative, but she is still symptomatic. She did have elevation of liver enzymes without a clear reason. I would expect more biliary obstruction in her liver enzymes. She has not had an official Gastroenterology consultation I do not think. Dr. White feels that there are no other surgical needs. She has had a scope, although the colonoscopy, she did not have a very good prep unfortunately. She had requested to go to [facility], but they have no beds, so now we are going to [facility] again for full Gastroenterology evaluation. I am going to stop the OxyIR. Will have to work on considering stopping her pain medication because that may not be helping the situation either, and we will continue hydration and follow closely. 2. Adjustment disorder. She is on Vortioxetine, and we will continue to monitor closely. cc: MD Juan Carlos Hannah MD
[2019-07-04 14:31] LABS: AGAP 12; ALBUMIN 3.6 g/dL (3.5-5.0); ALKALINE PHOSPHATASE 153 U/L (32-104); BUN 6 mg/dL (8-22); CALCIUM 8.8 mg/dL (8.8-10.2); CHLORIDE 111 mmol/L (98-107); COSMO 279; CREATININE 0.9 mg/dL (0.5-0.9); ESTIMATED GFR > 60; GLUCOSE 93 mg/dL (70-104); GOT 43 U/L (10-30); GPT 181 U/L (10-36); POTASSIUM 3.6 mmol/L (3.5-5.1); SODIUM 141 mmol/L (136-145); TCO2 19 mmol/L (25-35); TOTAL PROTEIN 6.2 g/dL (6.3-8.3)
[2019-07-04] MEDS ORDERED: MORPHINE IV ONE ×2 (17:30→17:31)
[2019-07-04] MEDS ORDERED: ZOFRAN IV PRN (20:49)
[2019-07-04] MEDS: TOPAMAX PO SCH (22:56)
[2019-07-05] MEDS: MORPHINE IV PRN ×7 (03:51→23:57)
[2019-07-05] MEDS: PROTONIX PO SCH (06:20)
[2019-07-05 06:52] LABS: BASO# 0.03 X1000 (0.0-0.2); BASO% 0.4 % (0.0-0.8); EOS# 0.28 X1000 (0.0-0.7); HEMATOCRIT 35.5 % (37.0-47.0); HEMOGLOBIN 11.3 g/dL (12.0-16.0); LYMPH# 3.17 X1000 (1.2-3.4); LYMPH% 45.3 % (20.5-51.1); MCH 30.5 PG (27-31); MCHC 31.8 g/dL (33-37); MCV 95.7 FL (81-99); MONO# 0.41 X1000 (0.11-0.59); MONO% 5.9 % (1.7-9.3); MPV 10.1 FL (7.4-10.4); NEUT# 3.11 X1000 (1.4-6.5); NEUT% 44.4 % (42.2-75.2); PLT 255 X1000 (130-400); RBC 3.71 XMIL (4.2-5.4)
[2019-07-05] MEDS: MIRALAX PO SCH (08:12)
[2019-07-05] MEDS: KLONOPIN PO PRN (08:22)
[2019-07-05] MEDS: NEURONTIN PO SCH ×5 (08:22→21:24)
[2019-07-05] MEDS ORDERED: APRESOLINE IV PRN (08:33)
--- NOTE | 2019-07-05 08:59 | GENERAL SURGERY PROGRESS NOTE ---
DATE: 07/05/2019 Patient transferred from [place]. She initially wanted to go to [place] for a second opinion. At this point, she has had a normal ultrasound, normal CT scan, normal MRI/MRCP, and normal endoscopy, although her colonoscopy, she had a poor prep. Did not see any immediate surgical issues, and the only other issue that potentially could be causing her discomfort is sphincter of Oddi dysfunction, although I am even unsure of this, but at this time, I agree with getting a GI consult to see what suggestions they have. I will follow peripherally. cc: Bakari White MD
[2019-07-05] MEDS ORDERED: MIRALAX PO SCH (09:00)
[2019-07-05] MEDS: TRINTELLIX PO SCH (11:45)
[2019-07-05] MEDS: NS 1,000 ML IV SCH (11:46)
[2019-07-05] MEDS: LEVSIN-SL SL PRN (14:07)
--- NOTE | 2019-07-05 14:42 | PROGRESS NOTE ---
DATE: 07/05/2019 INTERVAL HISTORY: No acute events overnight. The patient was transferred from [facility] [place]. In the morning time when I visited her she was on the phone ordering something so had to visit her again. While talking on the phone she did not appear in acute distress. At the time of my evaluation she states that her symptoms started about 1 month ago with abdominal pain, which was present on left upper quadrant, right upper quadrant and right lower quadrant out of nowhere and she started taking Tums, Tylenol, ibuprofen, Aleve, Nexium 1 after the other, which did not help and that is why she presented to the emergency room. Currently, she denies any nausea, vomiting. She does not have an appetite. She has not eaten her lunch, which I could see. She has not had any bowel movement today. VITALS: Temperature 98.1 degrees, pulse 75, respiratory rate 16. Blood pressure 170/80. She is saturating 100% on room air. PHYSICAL EXAMINATION: Not in acute distress.HEENT: Oral cavity is moist. Antibiotic equal. Lungs: No wheeze or crackles. Heart: Normal rhythm. Abdomen: Soft. There is tenderness in periumbilical region and on the right upper quadrant. LABORATORY DATA: Her CBC is unremarkable. CMP has not been performed previously. Blood culture and urine culture did not have any growth. No new imaging today. ASSESSMENT AND PLAN: 1. Abdominal pain of unclear etiology. She has had workup including CT scan abdomen and pelvis, abdominal ultrasound, MRCP, which were largely unremarkable. She also had EGD, which was unremarkable. She did have transaminitis and elevated alkaline phosphate on presentation, which improved over the course of her hospital stay. Her tenderness is very superficial and I am not sure if she has any intra-abdominal pathology which would contribute to this. It could also be related to a functional abdominal pain. However, I will await GI recommendation. Surgical team on board as well. 2. Transaminitis as well as elevated alkaline phosphatase. Unclear as to what could have contributed to this. She was taking multiple medications before she was admitted to the hospital. She states she was taking ibuprofen, Aleve, Nexium, Tums, among other medications to help with her abdominal pain. Unsure of those and she could not tell me some of the other medication that she could have taken. I am wondering if 1 of those could have caused her abnormal liver function test which got better after hospital admission since she was not on the medication she was taking at home. I will follow up with liver function test tomorrow. 3. Adjustment disorder. She is on Vortioxetine. I will continue her home clonazepam, gabapentin and topiramate. She is on morphine every 4 hours. My plan will be to slowly taper it off or completely stopping it within 24 hours. Plan of care discussed with the patient. She started crying towards the end of my encounter. All of her questions were answered. cc: Christian Jarquin MD
--- NOTE | 2019-07-05 14:54 | GASTROENTEROLOGY CONSULTATION ---
DATE: 07/05/2019 REASON FOR CONSULTATION: Abdominal pain. HISTORY OF PRESENT ILLNESS: Ms. Field is a 48-year-old female who was transferred yesterday from [facility] with ongoing abdominal pain. She has a history of panic disorder and depression, and is on Klonopin and Trintellix and is seeing a psychiatrist. Patient was tearful when answering questions. She came in with complaints of generalized abdominal pain and nausea, but no vomiting. She states that she has regular bowel movements, which are loose and has them at least 3 times a day. She denies any shortness of breath, chest pain, fever, or chills. She has a history of taking NSAIDs like ibuprofen and Advil for her stomach and back pain. She does take herbal medicines, and she said that she had taken 3 bottles of medicine that included Tums, Zantac and Prilosec, thinking that that would give her the relief from her abdominal pain. She had her gallbladder removed 3 years back, and ever since she has been having this problem of stomach pain. Her last menstrual period was a week back, and she has said that it is regular, and it lasts for 5 days, but she does have some cramping and back pain associated with it. Does complains of dark stools but recent EGD and colonoscopy done by Dr White showed gastritis and stool in the colon. She was noted to have elevated liver enzymes off and on for last 3 years and her chronic liver disease work up has been ordered by Dr Choi. She had CT scan abdomen and pelvis on admission and it showed stool throughout the colon and her MRCP done did not reveal any CBD and PD stones. PAST MEDICAL HISTORY: Hypertension, gallbladder disease, insomnia, neuropathy, anxiety, panic disorder, chronic back pain, history of ovarian cyst, and history of PTSD. ALLERGIES: No known drug allergies. FAMILY HISTORY: Mother had arthritis. Dad had hypertension. No GI malignancies. SOCIAL HISTORY: She is engaged. She has 2 kids. She is on disability. Past smoker. Denies drinking alcohol. PAST SURGICAL HISTORY: Cholecystectomy and back surgery. HOME MEDICATION: Trintellix, Klonipin, Neurontin, Tomezepam, Topiramate REVIEW OF SYSTEMS: As per HPI. Otherwise, 12 point review of system is negative. PHYSICAL EXAMINATION: Vital Signs: Temperature 97.5 degrees, pulse 57, respirations 16, blood pressure is 114/70, and oxygen is 100% on room air. General: She is alert and oriented x3, and in no acute distress. She is a little bit anxious, but is answering questions appropriately. She is a good historian. HEENT: Pale conjunctivae. No icterus. PERRL. Neck: Supple. Cardiovascular: Regular rate and rhythm. No murmurs, rubs, or gallops heard on auscultation. LUNGS: Clear to auscultation anterior and posterior melgar. Abdomen: Soft and tender. Distended. No guarding. No rebound tenderness. Active bowel sounds heard in all 4 quadrants. Extremities: No clubbing, cyanosis, or edema. 2+ pedal pulses present bilaterally. Neurologic: Alert and oriented x3. Nonfocal. Cranial nerves II to XII grossly intact. LABORATORY: WBC is 7.0, RBC is 3.7, hemoglobin is 11.3, hematocrit is 35.5, and platelet count is 255,000. Sodium is 141, potassium 3.6, chloride 111, carbon dioxide 19. Anion gap is 12, BUN is 6, creatinine is 0.6, glucose is 93, calcium is 8.8, total bilirubin is 0.30, AST is 43, ALT 181, alkaline phos is 152, amylase 26, and lipase is 13. Urinalysis on 06/29 showed a trace of WBC and epithelial cells. Hepatitis profile was non reactive. IMAGING: MRCP showed the distal most portion of the common bile duct is poorly seen. The remainder of the common bile duct is not dilated. Abdominal ultrasound showed negative exam. Abdominal CT and pelvis showed stable CT of the abdomen and the pelvis. ASSESSMENT: Periumbilical Abdominal pain Nausea and vomiting Elevated LFT's Depression Anxiety Panic disorder Constipation Likely IBS GERD and indigestion feeling PLAN: We are awaiting the results of her chronic liver disease workup. Her AST & ALT are 43 & 181 Patient is receiving NS @ 75 mls/hr. We will continue her with protonix 40 mg IV , antiemetic Zofran PRN for nausea and vomiting. We will increase the miralax to 17g BID to regularize her BM, she is also receiving gut antispasmodic Hyoscyamine for abdominal cramping and IV morphine for her ongoing pain control. We will continue to monitor her CBC and BMP, follow the plan of care per PCP. Further plan of care will be based on her results of her liver disease workup. This plan was discussed with Dr. Jaimes. Advised to reduce the dose of narcotics to lowest possible. Increase fluid intake as tolerated. May need ERCP to evaluate for biliary sludge if symptoms persists. Thank you for your consult. Please call us for any further questions or concerns. Dictated by LAUREL Mead for Gallito Jaimes MD cc: Gallito Jaimes MD Patient seen and examined and I agree with the above plan of care. Discussed the above plan of care with the patient in detial and all questions were answered. Please call us with any further questions. MTDD
[2019-07-05] MEDS: TOPAMAX PO SCH (21:25)
[2019-07-06] MEDS: MIRALAX PO SCH ×4 (00:21→20:49)
[2019-07-06] MEDS: PROTONIX PO SCH ×2 (05:48→06:15)
[2019-07-06] MEDS: MORPHINE IV PRN ×4 (05:48→20:38)
[2019-07-06] MEDS: LEVSIN-SL SL PRN (08:56)
[2019-07-06] MEDS: NEURONTIN PO SCH ×4 (08:56→20:38)
[2019-07-06] MEDS: KLONOPIN PO PRN ×2 (08:57→16:24)
[2019-07-06] MEDS: TRINTELLIX PO SCH (08:57)
[2019-07-06] MEDS: NS 1,000 ML IV SCH ×2 (08:59→13:33)
[2019-07-06 11:44] LABS: AGAP 8; ALB/GLOB RATIO 1.4; ALBUMIN 3.6 g/dL (3.5-5.0); ALKALINE PHOSPHATASE 134 U/L (32-104); BUN 5 mg/dL (8-22); CALCIUM 8.8 mg/dL (8.8-10.2); CHLORIDE 110 mmol/L (98-107); COSMO 274; CREATININE 0.9 mg/dL (0.5-0.9); ESTIMATED GFR > 60; GLUCOSE 91 mg/dL (70-104); GOT 24 U/L (10-30); GPT 106 U/L (10-36); POTASSIUM 3.8 mmol/L (3.5-5.1); SODIUM 139 mmol/L (136-145); TCO2 21 mmol/L (25-35); TOTAL BILIRUBIN 0.27 mg/dL (0.20-1.00); TOTAL PROTEIN 6.2 g/dL (6.3-8.3)
--- NOTE | 2019-07-06 13:28 | GASTROENTEROLOGY PROGRESS NOTE ---
DATE: 07/06/2019 SUBJECTIVE: Ms. Field is a 48 year old female resting in bed, tearful. Complained of abdominal pain and liquid diarrhea last night and this morning. She said she had not yet tried to eat her breakfast but she denied any nausea or vomiting. OBJECTIVE: Vital Signs: Temperature is 98.6 degrees, pulse is 66, respirations are 16, blood pressure is 118/70, oxygen saturation is 100% on room air. Her weight is 171.82 pounds. BMI is 33.7 kg/m2. General: She is alert, oriented x3, and in no acute distress but is anxious and tearful. HEENT: Pale conjunctivae. No icterus. PERRL. Neck: Supple. Cardiovascular: Regular rate and rhythm. No murmurs or gallops heard on auscultation. Lungs: Clear to auscultation in the anterior and posterior melgar. Abdomen: Soft. Tender. Distended. Involuntary guarding. No rebound tenderness. Active bowel sounds heard in all 4 quadrants. Extremities: No clubbing, cyanosis, or edema. 2+ pedal pulses present bilaterally. Neurological: Alert, oriented x3. Laboratory Data: WBCs 7.0, RBCs 3.71, hemoglobin is 11.3, hematocrit is 35.5, platelets are 255,000. Sodium is 141, potassium is 3.6, chloride is 111, carbon dioxide 19, anion gap 12, BUN is 6, creatinine is 0.9, glucose 93, calcium 8.8. Total bilirubin is 0.30, AST is 43, ALT is 181, alkaline phosphatase is 153, amylase 26, lipase is 13. Her hepatitis panel was nonreactive. MRCP done on 07/03/2019 showed distal-most portion of the common bile duct is poorly seen, the remainder of the common bile duct is not dilated. Abdominal ultrasound on 07/01/[address] of the abdomen and pelvis on 06/29/2019 showed stable abdomen. IMPRESSION: 1. Periumbilical abdominal pain. 2. Nausea and vomiting. 3. Elevated liver function tests-need to evaluate for biliary sludge or Sphincter of oddi dysfunction. 4. Depression. 5. Anxiety. 6. Panic disorder. 7. Constipation, likely irritable bowel syndrome. 8. Gastroesophageal reflux disease and indigestion feeling. PLAN: The plan is do an ERCP tomorrow to rule out biliary sludge vs Sphincter of Oddi. We are awaiting the results of her chronic liver disease workup. Her AST and ALT were 43 and 181. She is currently on IV fluids with normal saline at 75 mL per hour. We will continue with GI prophylaxis, Protonix 40 mg PO daily for GERD, antiemetics, Zofran PRN for nausea and vomiting. She is on Klonopin and Trintellix for her anxiety and depression per her primary care provider. We will continue her MiraLAX for her constipation. The patient is on hyoscyamine for her abdominal cramps per her primary care provider. Her H & H today was 11.3 and 35.5, which has trended upwards since yesterday. Her ALT and AST are 43 and 181. We will continue to monitor her CBC and BMP. We have advised patient to get up and walk around, reduce the dose of narcotics which can cause her to have more constipation. The risks, benefits and alternatives of the ERCP procedure discussed with patient, patient acknowledges understanding and agrees to proceed with the above plan of care. Further plan of care will be based on the ERCP findings. This plan was discussed with Dr. Jaimes. Please call us with any further questions or concerns. Dictated by LAUREL Mead for Gallito Jaimes MD cc: Gallito Jaimes MD I have seen and examined the patient myself and I agree with the above plan of care. Discussed the above with the patient at bedside and all questions were answered. Please call us with any further questions MTDD
--- NOTE | 2019-07-06 17:47 | PROGRESS NOTE ---
DATE: 07/06/2019 INTERVAL HISTORY: No acute events overnight. The patient denies any new complaints. She continues to experience abdominal pain. SUBJECTIVE: She denies any nausea, vomiting. She says she has not been able to eat anything because of pain. She appears very anxious and teary. Her fiancee is at bedside. VITAL SIGNS: Temperature 98.5 degrees, pulse 71, respiratory 18, blood pressure 140/90, saturating 100% on room air. PHYSICAL EXAMINATION: General: Not in acute distress. HEENT: Oral cavity is moist. Lungs: Air entry bilaterally equal. No wheeze, rhonchi, or crackles. Cardiovascular: S1, S2 normal. No murmur, rub, or gallop. Abdomen: Soft. There is superficial tenderness in the epigastric region. Active bowel sound. Appears distended. Deep palpation is not possible as she is complaining of tenderness. However, no tenderness in the left lower quadrant. Extremities: No lower extremity edema. Neurologic: She is alert and oriented x3. LABS: Rather unremarkable. Her LFTs are trending down. No positive microbiology or imaging data. ASSESSMENT AND PLAN: 1. Abdominal pain of unclear etiology with negative workup including abdominal CT, abdominal ultrasound, MRCP, EGD, and colonoscopy. However, the colonoscopy prep was poor. Her elevated liver function tests are trending down and becoming almost normal. Her autoimmune workup including antinuclear antibody, antimitochondrial, and antismooth muscle antibodies have been negative. Hepatitis panel has also been negative. GI on board. May consider getting ERCP to evaluate if she has any biliary sludge or sphincter of Oddi dysfunction. 2. Adjustment disorder and anxiety and chronic pain. Continue home clonazepam, gabapentin, topiramate, Trintellix. 3. Disposition. Awaiting further GI recommendations. 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 Plan of care discussed with the patient and her fiancee. cc: Christian Jarquin MD
[2019-07-06] MEDS: TOPAMAX PO SCH (20:38)
[2019-07-07] MEDS: NS 1,000 ML IV SCH (01:19)
[2019-07-07] MEDS: MORPHINE IV PRN ×3 (01:19→09:51)
[2019-07-07] MEDS: PROTONIX PO SCH ×2 (05:36→06:15)
[2019-07-07] MEDS ORDERED: ULTRAM PO PRN (08:20)
--- NOTE | 2019-07-07 08:45 | PROGRESS NOTE ---
DATE: 07/07/2019 INTERVAL HISTORY: No acute events overnight. She continues to have abdominal pain. I evaluated her at bedside. She is about to go for ERCP noon time. I discussed with her and her partner about possibly neuropathic or functional abdominal pain. I told them that my suspicion of any intra-abdominal pathology is less. However, we will see what the ERCP has to say. I also discussed with the patient about stopping the IV morphine in the afternoon time and starting her on oral medications. VITALS: Currently, temperature of 98.2 degrees, pulse 58, respiratory rate 20, blood pressure 112/67, saturating 100% on room air. PHYSICAL EXAMINATION: General: On physical examination, she does not appear in any acute distress. She is using her cellphone. Oral cavity: Moist. Respiratory: Air entry bilaterally equal. No wheeze, rhonchi, crackles. Cardiovascular: S1, S2 is normal. No murmur or gallop. Abdomen: Soft. There is a superficial tenderness in epigastric and the right quadrant. No tenderness in the left quadrant. LABS: CBC is unremarkable. BMP had elevated chloride yesterday. I will repeat liver function test tomorrow. Her FATMATA, antimitochondrial, anti smooth muscle, hepatitis panel and amylase, lipase, as well as antitrypsin, ceruloplasmin workup have been negative. ASSESSMENT AND PLAN: 1. Abdominal pain of unclear etiology with negative workup, including abdominal CT, abdominal ultrasound, magnetic resonance cholangiopancreatography, esophagogastroduodenoscopy and colonoscopy. The patient to undergo endoscopic retrograde cholangiopancreatography. She may need outpatient colonoscopy in the future since the preparation was poor. Her workup for autoimmune pathology, as well as primary biliary cirrhosis or primary sclerosing cholangitis, have been unremarkable. Follow up endoscopic retrograde cholangiopancreatography results. Meanwhile, I will transition her from intravenous to oral pain medication. 2. Adjustment disorder and anxiety and chronic pain. Continue home clonazepam, gabapentin, topiramate, and Trintellix. She would need outpatient pain clinic referral, and I would inform the discharge nurse to provide her some help with that. DISPOSITION: Awaiting ERCP results. Plan of care discussed with the patient and her partner. Their questions have been answered. cc: Christian Jarquin MD
[2019-07-07] MEDS ORDERED: DIPRIVAN 1% 0 MG/0 ML BOTTLE ONE (09:46)
[2019-07-07] MEDS ORDERED: FENTANYL ONE (09:52)
[2019-07-07] MEDS ORDERED: DIPRIVAN 1% 500 MG/50 ML BOTTLE ONE (10:02)
--- NOTE | 2019-07-07 11:35 | Diag Imaging Result Doc PS360 ---
EXAM: ERCP-BILIARY AND PANCREATIC HISTORY: Elevated Liver enzymes; eval for sludge vs SOD TECHNIQUE: Five films from an ERCP COMPARISON: None. FINDINGS: There are surgical clips in the right upper quadrant from a cholecystectomy. Contrast fills the common bile duct. No stone or stricture identified. IMPRESSION: Negative exam. Electronically signed by Zurdo Collins 07/07/2019 11:33 AM
[2019-07-07] MEDS: NEURONTIN PO SCH ×4 (12:23→22:22)
[2019-07-07] MEDS: KLONOPIN PO PRN (12:27)
[2019-07-07] MEDS: TRINTELLIX PO SCH (12:28)
[2019-07-07] MEDS: MIRALAX PO SCH ×2 (12:29→22:22)
--- NOTE | 2019-07-07 14:09 | OPERATIVE NOTE ---
PROCEDURE DATE: 07/07/2019 PROCEDURES: 1. Endoscopic retrograde cholangiopancreatography. 2. Endoscopic sphincterotomy. 3. Basket sweep. PREOPERATIVE DIAGNOSIS: Rule out common bile duct stone and/or sphincter of Oddi dysfunction. POSTOPERATIVE DIAGNOSIS: Papillary stenosis, papillotomy done. DESCRIPTION OF PROCEDURE IN DETAIL: After informed consent and adequate intravenous sedation, the scope introduced in the esophagus, stomach and duodenum. The ampulla is not prominent and it is normal. Pancreatogram is normal. Cholangiogram did not reveal any filling stones; however, there is a hang up of the contrast; it would not empty. At this point, a standard papillotomy was done. Basket sweep did not reveal any stones. The scope was withdrawn. The patient tolerated the procedure well without any immediate complications. cc: Roya Guaman MD
[2019-07-07] MEDS: NORCO-5 PO PRN (18:57)
[2019-07-07] MEDS: TOPAMAX PO SCH (22:22)
[2019-07-08] MEDS: NORCO-5 PO PRN ×2 (04:08→10:06)
[2019-07-08 06:22] LABS: AGAP 10; ALB/GLOB RATIO 1.2; ALBUMIN 3.2 g/dL (3.5-5.0); ALKALINE PHOSPHATASE 114 U/L (32-104); BUN 6 mg/dL (8-22); CHLORIDE 112 mmol/L (98-107); COSMO 282; CREATININE 0.9 mg/dL (0.5-0.9); ESTIMATED GFR > 60; GLUCOSE 119 mg/dL (70-104); GOT 27 U/L (10-30); GPT 69 U/L (10-36); SODIUM 142 mmol/L (136-145); TCO2 20 mmol/L (25-35); TOTAL BILIRUBIN < 0.15 mg/dL (0.20-1.00); TOTAL PROTEIN 5.8 g/dL (6.3-8.3)
[2019-07-08] MEDS: PROTONIX PO SCH (06:28)
[2019-07-08] MEDS: NEURONTIN PO SCH ×4 (10:06→22:00)
[2019-07-08] MEDS: TRINTELLIX PO SCH (10:06)
[2019-07-08] MEDS: MIRALAX PO SCH ×2 (10:07→22:00)
[2019-07-08] MEDS: KLONOPIN PO PRN (11:49)
[2019-07-08] MEDS ORDERED: CYMBALTA PO PRN (12:27)
[2019-07-08] MEDS: LEVSIN-SL SL PRN (12:31)
[2019-07-08] MEDS ORDERED: ZOSTRIX TOP PRN (14:08)
[2019-07-08] MEDS ORDERED: XYLOCAINE 5% OINT TOP PRN (14:09)
[2019-07-08] MEDS ORDERED: LEVSIN-SL SL PRN (14:09)
--- NOTE | 2019-07-08 15:00 | PROGRESS NOTE ---
DATE: 07/08/2019 INTERVAL HISTORY: She underwent ERCP with sphincterotomy yesterday which she tolerated well. Today, liver function tests are continuing to trend down. She is complaining of pain in the right quadrant, and she thinks her appendix is bothering her. She does not allow proper examination because of pain. She is bent over in the bed. CURRENT VITALS: Temperature of 98.7 degrees, pulse is 66, respiratory 18, blood pressure 120/75, satting 100 percent on room air. She is remarkably not tachycardic. PHYSICAL EXAMINATION: Lungs: Air entry bilaterally equal. No wheeze, rhonchi or crackles. Heart: S1 normal. No murmur, rub or gallop. Abdomen: Soft. Active bowel sounds. She is complaining of right quadrant pain with excruciating tenderness. LABORATORY DATA: Her CMP suggestive of mild hyperchloremia, hyperglycemia, otherwise trending down of liver function test. MICROBIOLOGY: Has not shown any growth. IMAGING: ERCP yesterday had a sphincterotomy and a basket sweep, so she did have papillary stenosis. ASSESSMENT AND PLAN: 1. Abdominal pain of unclear etiology. Her abdominal pelvis CT, abdominal ultrasound, MRCP, EGD, ERCP have been largely unremarkable. Colonoscopy had poor preparation and she underwent papillotomy on ERCP, though she continues to have abdominal pain and I doubt her papillary stenosis was contributing to her pain. Ms. Field is worried about pain coming from the appendix. I sat down and talked with her and her partner at length, that she does not have nausea, vomiting. She does not have leukocytosis. She does not have any image evidence of appendicitis, and my suspicion was low. I asked her if she was very anxious and if that could explain her abdominal pain; however, she gets upset and she states that she knows when she has panic attacks and this is not that. I explained to her that I do not have unfortunately any other means to help with her pain. I explained to her that narcotic would not be an answer to her pain. In any case, they are not helping her. I explained to her that I would increase the antispasmodic medication dose. I will also add some topical cream to see if they would help. I at length explained and talked with her partner and herself. I also explained to them that they would have to see a regular doctor, eventually a pain doctor, GI doctor, Dr. Jaimes, in his office as an outpatient. However, they want to wait to be seen by Dr. Jaimes inside the hospital. 2. Others. Continue her home medication of clonazepam, gabapentin, topiramate, and Trintellix for history of anxiety and chronic pain. DISPOSITION: The patient is medically ready to be discharged. However, she does not want to go considering she is still in abdominal pain. I will see how she does on topical ointment preparations. cc: Christian Jarquin MD
[2019-07-08 16:17] LABS: BASO# 0.03 X1000 (0.0-0.2); BASO% 0.3 % (0.0-0.8); EOS# 0.44 X1000 (0.0-0.7); EOS% 4.6 % (0.0-10.0); HEMATOCRIT 37.2 % (37.0-47.0); HEMOGLOBIN 11.9 g/dL (12.0-16.0); LYMPH# 2.97 X1000 (1.2-3.4); LYMPH% 30.9 % (20.5-51.1); MCH 30.4 PG (27-31); MCV 94.9 FL (81-99); MONO# 0.37 X1000 (0.11-0.59); MONO% 3.8 % (1.7-9.3); MPV 10.4 FL (7.4-10.4); NEUT# 5.81 X1000 (1.4-6.5); NEUT% 60.4 % (42.2-75.2); PLT 307 X1000 (130-400); RBC 3.92 XMIL (4.2-5.4); RDW 13.8 % (11.5-14.5); WBC 9.62 X1000 (4.8-10.8)
--- NOTE | 2019-07-08 17:51 | Diag Imaging Result Doc PS360 ---
EXAM: CT ABDOMEN/PELVIS W/O CONTRAST INDICATION: Rule out appendicitis TECHNIQUE: This exam was performed using automated exposure control, adjustment of mA or kV according to patient size, and/or use of iterative reconstruction technique. COMPARISON: 06/29/2019 FINDINGS: There has been a prior cholecystectomy. The liver, spleen, pancreas, adrenal glands, kidneys, and urinary bladder are grossly unremarkable. The reproductive tract is unremarkable as imaged. The appendix is normal. There are a few sigmoid colonic diverticula but there is no evidence of diverticulitis. There is no focal bowel wall thickening or bowel obstruction. The stomach is filled with debris, likely food stuffs. The remainder of the GI tract is essentially unremarkable. No focal inflammatory changes, free abdominal gas, or free fluid is appreciated. There is no evidence of acute osseous abnormality. IMPRESSION: 1.Minimal uncomplicated diverticulosis coli. 2.No evidence of appendicitis or other definite acute pathology by unenhanced CT. Electronically signed by Alessandro Livingston 07/08/2019 5:48 PM
--- NOTE | 2019-07-08 19:09 | GASTROENTEROLOGY PROGRESS NOTE ---
DATE: 07/08/2019 SUBJECTIVE: The patient is currently in distress because of worsening abdominal pain in the right lower quadrant. Her boyfriend is present at bedside. We are concerned about possible appendicitis. I have spoken with Dr. Jarquin, who will likely ask the Surgery team to see her and get a CT scan of the abdomen and pelvis to evaluate the appendix area. OBJECTIVE: Vital signs: Temperature 98.7, pulse rate 75, respiratory rate 20, blood pressure 112/57, saturating 94% on room air. Body weight of 172 pounds, 6 ounces. BMI 33.7 kg/m. General: Ms. Field is lying in bed, in distress with abdominal pain in the right lower quadrant. No rebound in the right lower quadrant. HEENT: Positive pallor. No icterus. Neck: Supple. Abdomen: Discomfort in the right lower quadrant. No rebound. No guarding. Extremities: No cyanosis, clubbing. Neurologic: She is crying in pain, but she is able to answer some questions. LABS: Sodium 142, potassium 4, chloride 112, bicarb 20, anion gap 10, BUN of 6, creatinine 0.9, glucose of 119. Calcium is 9. Total bilirubin is less than 0.15. AST 27, ALT 16, alkaline phosphatase 114, total protein 5.8, albumin of 2.2. A chronic liver disease workup in the form of alpha-1 antitrypsin level is 138, which is normal. Ceruloplasmin level is 27, which is normal. Amylase is 26, lipase 13. FATMATA is negative. Antimitochondrial antibodies negative. Tbrh-[id number] antibody is negative. Acute hepatitis panel is negative. Yesterday, ERCP showed no evidence of any retained stones. Basket sweep was negative. She had a papillotomy done. IMPRESSION AND PLAN: 1. Abdominal pain in the right lower quadrant of new onset. Unclear etiology. Obtain CT scan of the abdomen and pelvis per the primary team to evaluate for any evidence of appendicitis. Surgery team is already on board. I have spoken about this to the patient's family and also with Dr. Jarquin. 2. Constipation. In that regard, she will continue MiraLAX once or twice daily and hold for more than 3 bowel movements. 3. Negative ERCP, but a papillotomy was done in case there was any doubt of sphincter of Oddi dysfunction. her liver enzymes are trending down. Her chronic liver disease workup was negative. 4. Mild anemia continue to watch for now. 5. Nausea and vomiting, improved. 6. Depression, anxiety, panic disorder. She sees a psychiatrist as an outpatient. 7. Gastroesophageal reflux disease and feeling of indigestion. She will continue on a proton pump inhibitor once daily for 90 days and then wean down to Pepcid twice daily as needed. 8. Question of irritable bowel syndrome. She is on Levsin sublingual as needed. 9. If the patient continues to have symptoms, then she may need to be referred to [place] to be evaluated at [facility]. The above plans were discussed with the patient and family at bedside and all questions were answered. Please call us with any further questions. cc: MD Christian Mena MD
[2019-07-08] MEDS: TOPAMAX PO SCH (22:00)
[2019-07-08] MEDS ORDERED: NORCO-7.5 PO ONE (23:13)
[2019-07-09] MEDS: DILAUDID IV PRN ×2 (01:26→06:21)
[2019-07-09 06:02] LABS: BASO# 0.02 X1000 (0.0-0.2); BASO% 0.2 % (0.0-0.8); EOS# 0.47 X1000 (0.0-0.7); HEMATOCRIT 36.8 % (37.0-47.0); HEMOGLOBIN 11.9 g/dL (12.0-16.0); IMM GRAN# 0.02 X1000 (0.0-0.04); IMM GRAN% 0.2 % (0.0-0.5); LYMPH# 3.67 X1000 (1.2-3.4); LYMPH% 39.4 % (20.5-51.1); MCH 30.5 PG (27-31); MCHC 32.3 g/dL (33-37); MCV 94.4 FL (81-99); MONO# 0.42 X1000 (0.11-0.59); MONO% 4.5 % (1.7-9.3); MPV 10.3 FL (7.4-10.4); NEUT# 4.72 X1000 (1.4-6.5); NEUT% 50.7 % (42.2-75.2); PLT 317 X1000 (130-400); RDW 13.8 % (11.5-14.5); WBC 9.32 X1000 (4.8-10.8)
[2019-07-09] MEDS: PROTONIX PO SCH (06:21)
--- NOTE | 2019-07-09 08:46 | EKG Report ---
Test Performed on : 07/09/2019 06:04:01 AM Test Reason : Follow up QTc Blood Pressure : / mmHG Vent. Rate : 058 BPM Atrial Rate : 058 BPM P-R Int : 128 ms QRS Dur : 106 ms QT Int : 448 ms P-R-T Axes : 025 038 037 degrees QTc Int : 439 ms Sinus bradycardia. Otherwise normal ECG When compared with ECG of 29-JUN-2019 11:50, (Unconfirmed) No significant change was found Confirmed by Merlin CARIAS, Dann Siddiqui ([id number]) on 07/09/2019 9:42:46 PM
[2019-07-09] MEDS: NEURONTIN PO SCH ×2 (09:52→13:50)
[2019-07-09] MEDS: MIRALAX PO SCH (09:52)
[2019-07-09] MEDS: KLONOPIN PO PRN (09:52)
[2019-07-09] MEDS: TRINTELLIX PO SCH (09:52)
[2019-07-09 16:03] VITALS: BP 120/72
--- NOTE | 2019-07-09 17:19 | GASTROENTEROLOGY PROGRESS NOTE ---
DATE: 07/09/2019 SUBJECTIVE: Resting in bed. She complains of abdominal pain. She had a CT scan done yesterday which did not show any evidence of appendicitis. The CT scan showed minimal uncomplicated diverticulosis coli. The patient is requesting IV Dilaudid for pain control. She denies any fevers, rigors, or chills. Her last bowel movement was yesterday. She has not moved her bowels today. CT scan showed possible food debris in the stomach. OBJECTIVE: Vital signs: Temperature 99.4, pulse of 76, respiratory blood pressure 120/72, saturating 97% on room air. Body weight of 172 pounds 6 ounces. BMI of 33.7 kg. General: The patient is moderately built, moderately nourished, lying in bed, currently resting in bed. HEENT: Mild pallor. No icterus. Pupils equal and reactive to light and accommodation. Neck: Supple. Abdomen: Discomfort in the pelvic region. No rebound or guarding. Extremities: No cyanosis or clubbing. Neurologic: Alert, awake, and oriented x3. LABS: Hemoglobin and hematocrit 11.9 and 36.8, white count 9.32, platelet count of 317. Chronic liver disease workup was negative. Plasma lactate 1.4. CT scan showed evidence of possible food stuff in the stomach and diverticulosis - Uncomplicated and no evidence of appendicitis. IMPRESSION AND PLAN: 1. Abdominal pain in the right lower quadrant on physical exam. Unclear etiology. It could be irritable bowel syndrome. She did have some food stuff noted on the CT scan. We will perform a gastric emptying study in the morning. The patient is requesting IV Dilaudid. This will be managed per the primary care team. 2. Constipation. She will continue on MiraLAX once or twice daily. She has not had a bowel movement today. 3. Negative endoscopic retrograde cholangiopancreatography, but a papillotomy was done for possibility of sphincter of Oddi dysfunction. We will repeat her liver enzymes in the morning. Mild anemia which is improving. Continue to watch for now. 4. Nausea and vomiting are improved. 5. Depression, anxiety, and panic disorder. She sees psychiatrist as outpatient. 6. Gastroesophageal reflux disease. She will need to continue on PPIs once daily. If her symptoms persist, then we may have to repeat EGD. 7. She will continue on Levsin sublingual as needed for irritable bowel syndrome. 8. The patient continues to have symptoms, she may have to referred to [facility] for further workup. I discussed the plan with the patient. All questions answered. Please call us with any further questions. cc: Dr. Britton Jaimes MD [facility]
--- NOTE | 2019-07-09 17:47 | DISCHARGE SUMMARY ---
ADMISSION DATE: 06/29/2019 DISCHARGE DATE: 07/09/2019 DISCHARGE DISPOSITION: Home with family. Previously attempts were made to transfer her to [facility] upon her request on June 29. However, they did not have a bed. I called [facility] today upon patient's request. However, they do not have any bed either. The patient appears to be hemodynamically stable. No tachycardia. No fever. No WBC count. Lactate is normal. So I discussed with the patient that I did not have any other help to offer, and my recommendation was to have an outpatient followup with Gastroenterology or General Surgery for 2nd opinion. DISCHARGE DIAGNOSES: 1. Right-sided abdominal pain of unclear etiology. 2. Elevated liver function test on admission due to biliary sludge vs mild sphincter oddi stnosis vs other causes. 3. Constipation. OTHER DIAGNOSES: 1. History of adjustment disorder. 2. History of anxiety. CONSULTATIONS DURING HOSPITAL ADMISSION: General Surgery, Dr. White. Gastroenterology, Dr. Jaimes. PROCEDURES DURING HOSPITAL ADMISSION: On 07/03/2019, patient underwent upper endoscopy and colonoscopy up to the ascending colon. Upper endoscopy had gastritis without any other acute pathology. Colonoscopy was of poor preparation. The patient underwent ERCP on July 07, and it resulted in endoscopic sphincterotomy with basket sweep for concern of mild stenosis. DISCHARGE MEDICATIONS: Clonazepam 1 mg b.i.d. Gabapentin 600 mg 4 times a day. Temazepam 30 mg at nighttime. Topiramate 200 mg at nighttime. Trintellix 5 mg in the morning time. Duloxetine 20 mg once daily as needed for pain, 30 capsules have been prescribed. MiraLAX 17 g b.i.d. 30 powder has been prescribed. Lidocaine 5% ointment 1 application topical b.i.d. as needed for pain. PHYSICAL EXAMINATION: Vitals: At the time of discharge, temperature 99.4 degrees, pulse 76, respiratory 20, blood pressure 120/72, saturating 97% on room air. General: She is resting in the bed complaining of hurting in her right upper quadrant. HEENT: Oral cavity is moist. Lungs: Air entry bilaterally equal. No wheeze, rhonchi, crackles. Cardiovascular: S1, S2 normal. No murmur or gallop. Abdomen: Obese, soft, nontender in all quadrants except right lower quadrant where she has voluntary guarding on superficial palpation. I could not perform any deep palpation. Extremity: No lower extremity edema. She is alert and oriented x3. LABORATORY DATA: Significant labs during hospital admission and discharge. She never had leukocytosis. Currently WBC 9.3, hemoglobin 11.9, platelet of 317,000. She had normal kidney function with BUN of 6, creatinine of 0.9. Her total bilirubin during hospital admission was normal, and most of the times it was between 0.2 to 0.3. She did have elevated AST of 348 on admission which normalized on discharge to 27. She did have elevated ALT of 516 on admission which normalized to 69 at the time of discharge. Her alkaline phosphatase on admission was 202 which improved to 114 at the time of discharge. Her alpha-1 antitrypsin, ceruloplasmin, plasma lactate, FATMATA, and antimitochondrial antibody, antismooth muscle antibody, where negative. Her urinalysis was unremarkable. Her hepatitis panel was nonreactive for hepatitis A, hepatitis B, and hepatitis C. Significant micro during hospital admission. Blood culture and urine culture did not have any pathologic growth IMAGING: Significant imaging during hospital admission. On 06/29/2019, she underwent abdomen and pelvis CT which did not detect any evidence of acute disease in visualized portion of the chest. There was prominence of intrahepatic biliary ducts. Common bile duct measured less than 8 mm in diameter. There was previous cholecystectomy. Adrenal glands and spleen were not enlarged. There was stool throughout the colon. Pancreas was unremarkable. There was no evidence of bowel obstruction or abdominal aortic aneurysm. There was no significant adenopathy. The kidneys were without evidence of hydronephrosis or mass. The appendix was normal in appearance. There was no evidence of diverticulitis or masses. There was prominent external iliac node on the right, which was not changed significantly in appearance since the previous study. There was no evidence of free fluid. There was a tampon in the vagina. The urinary bladder was not distended. There were postsurgical changes in the lumbar spine without evidence of acute bony abnormality. Abdominal ultrasound had a common bile duct of 8 mm. The liver, pancreas and spleen were normal. Both kidneys were obscured by extensive bowel gas. MRCP on July 03 said though distalmost portion of the common bile duct was poorly seen, the remainder of the common bile duct was not dilated. ERCP did not detect any stones or stricture. Repeat abdomen and pelvis CT on October 12 had minimal uncomplicated diverticulosis coli. There was no evidence of appendicitis or other definitive acute pathology. Electrocardiogram on admission had normal sinus rhythm with sinus arrhythmia. Electrocardiogram on July 09 had sinus bradycardia. HOSPITAL COURSE SUMMARY: Ms. Field is a 48-year-old lady who came in with chief complaints of nausea, vomiting, and intense abdominal pain of about 3 months' duration which was getting worse over a period of a few weeks. She also had fever of 103 for about the past 2 or 3 weeks, though she did not seek any medical attention. She did not have any hematemesis, melena or hematochezia. Her symptoms progressively and gradually worsened to an extent that she had to come to the emergency room. According to the report on the way to the emergency room, the patient's fiancee had to caul puller the car and perform CPR on her because she had stopped bleeding. However, upon arrival to the emergency room, she was awake, alert, oriented and was not in any respiratory distress. She was admitted for further management. Her past medical history was significant for insomnia, neuropathy, chronic anxiety, PTSD, previous suicide attempt as per the documentation. On admission, her vitals were unremarkable though she did have an elevated liver function test. She states that over last 2 or 3 months, she was taking a large amount of Tums, Prilosec, and a lot of other aaxz-eav-afuafha medication to help with her abdominal pain without much relief, though she was not able to provide the details of which medication she took for how long and how frequent. She was resuscitated with intravenous fluids, and she underwent CT scan of the abdomen and pelvis which was unremarkable. She continued to complain of initially abdominal pain in epigastric right upper quadrant and right lower quadrant region on 3 particular spots. To further investigate her upper abdominal pain, she underwent upper endoscopy which did not have any acute pathology which could explain her pain. She also underwent colonoscopy. It was a poor preparation, though there was nothing remarkable on colonoscopy, so she was transferred to [facility] for further investigation and GI follow-up. By this time with intravenous fluid, her liver function test was already getting better. She underwent ERCP to evaluate for sphincter of Oddi dysfunction. Though the ERCP x-ray was unremarkable, it was thought that she had mild stenosis of the sphincter, so she underwent sphincterotomy. There were no postprocedure complication. However, despite that she continued to complain of abdominal pain. Later on, it was localized in just right lower quadrant. Considering she had constipation, narcotic pain medications were held, and her pain was being managed with sublingual hyoscyamine topical cream. A repeat CT scan of the abdomen and pelvis was performed 1 day prior to discharge since the patient and her fiancee had concerns for appendicitis, though she did not have any vomiting during hospital admission. Her lactate, WBC count, and pulses were normal. A repeat CT scan did not detect appendicitis. However, the patient continued to suspect that she had appendicitis or something else, and the family had requested to be transferred over to [facility]. On family's request, I called [facility]. However, they did not have any bed. However, I was assured that they would have performed pretty much the same testing to evaluate her abdominal pain that we had already done, and they recommended possibly outpatient followup. I again went to the bedside and extensively counseled patient and her . I told them that there was no organic pathology that we could figure out which could be contributing to abdominal pain and had requested them to have an outpatient followup with Dr. Jaimes even providing them on-line resources for [facility] that they could contact and schedule an appointment. More than 30 minutes of time was spent in discharging this patient. cc: MD LUIS MANUEL Sanon
== END 2019-07-09 18:20 | disposition home or self-care (01) | DRG 391 ==
LOC: P.ED 10:17 → SUATTDRO 14:45 → P.MEDSURG 14:45 → 4N 07-04 15:32
PROVIDERS: ATTEND Internal Medicine
PROC: EN.ERCP (2019-07-07 10:42)